=== PATIENT | female | born 1950 | race Two or more races ===

== ENCOUNTER 2018-10-14 11:30 | Emergency (ER) | payer MEDICARE, OTHER ==
[~2018-10-14] VITALS: Ht 154.9 cm; Wt 59.0 kg
--- NOTE | 2018-10-14 11:45 | NUR ---
PT BIBRA FROM HOME C/O BILAT/LOWER RIB AREA PAIN S/P FALL LAST SUNDAY. FACIAL BRUISIG NOTED. 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 STATES TOOK TYLENOL 1G AT AROUND 0900 TODAY. STABEL VITALS. WILL CONTINUE TO MONITOR.
--- NOTE | 2018-10-14 11:49 | NUR ---
DR BRIDGES AT BEDSIDE FOR EVAL.
--- NOTE | 2018-10-14 12:06 | NUR ---
RADIOLOGY AT BEDSIDE FOR CHEST XRAY.
--- NOTE | 2018-10-14 12:13 | NUR ---
PT TO RADIOLOGY FOR HEAD CT SCAN VIA [facility].
[2018-10-14 12:38] LABS: BASOPHILS % (AUTO) 0.4 % (0.0-2.0); EOSINOPHILS % (AUTO) 3.4 % (0.0-6.0); HEMATOCRIT 39 % (33-45); LYMPHOCYTES # (AUTO) 2.1 /CMM (0.8-4.8); LYMPHOCYTES % (AUTO) 23.8 % (20.0-44.0); MEAN CORPUSCULAR HGB CONC 33 g/dl (31.0-36.0); MEAN CORPUSCULAR VOLUME 92 fL (82-100); MONOCYTES # (AUTO) 0.9 /CMM (0.1-1.30); MONOCYTES % (AUTO) 9.5 % (2.0-12.0); NEUTROPHILS # (AUTO) 5.6 /CMM (1.8-8.9); NEUTROPHILS % (AUTO) 62.9 % (43.0-81.0); PLATELET COUNT (AUTO) 238 /CMM (150-450); RED BLOOD CELL COUNT(AUTO) 4.27 MIL/uL (4.0-5.2)
[2018-10-14 12:48] LABS: CALCIUM, SERUM 9.7 mg/dL (8.5-10.1); CARBON DIOXIDE 30 mmol/L (21-32); CHLORIDE 105 mmol/L (98-107); GLUCOSE 100 mg/dL (74-106); POTASSIUM 4.4 mmol/L (3.5-5.1); SODIUM SERUM 141 mmol/L (136-145); UREA NITROGEN, BLOOD 15 mg/dL (7-18)
[2018-10-14] MEDS ORDERED: IOHEXOL-300 100 ML VIAL IV ONE (13:55)
[2018-10-14] MEDS ORDERED: IV NS 0.9% 250 ML IV ONE (13:56)
[2018-10-14] MEDS ORDERED: CT SWABBABLE VALVE TRANS SET 1 EA INFUS.SET MC ONE (13:56)
--- NOTE | 2018-10-14 14:32 | NUR ---
PT OT RADIOLOGY FOR [facility].
--- NOTE | 2018-10-14 16:02 | NUR ---
CALLED [employer] TO REQUEST A WALKER. LEFT A VOICEMAIL
--- NOTE | 2018-10-14 16:21 | NUR ---
PT PROVIDED W/ A WALKER. FRIEND AT BEDSIDE TO TAKE PT HOME. IV removed. Catheter intact and site benign. Pressure and 4x4 applied to site. No bleeding noted.Patient discharged to home in stable condition. Written and verbal after care instructions given. Patient verbalizes understanding of instruction.
[2018-10-14 16:23] VITALS: BP 132/60
== END 2018-10-14 16:25 | disposition home or self-care (01) ==
LOC: ER 11:32
DX: S22.31XA Fracture of one rib, right side, initial encounter for closed fracture (principal); S00.83XA Contusion of other part of head, initial encounter; R55 Syncope and collapse; I10 Essential (primary) hypertension; W18.39XA Other fall on same level, initial encounter; Y93.01 Activity, walking, marching and hiking; Y92.89 Other specified places as the place of occurrence of the external cause; Y99.8 Other external cause status
CPT/HCPCS: 36415; 70450; 71045; 71260; 74177; 80048; 84484; 85025; 85730; 93005; 99284; J7050; Q9967

== ENCOUNTER 2018-12-16 11:48 | Emergency (ER) | payer MEDICARE, OTHER ==
[~2018-12-16] VITALS: Ht 157.5 cm; Wt 50.0 kg
[2018-12-16 11:56] VITALS: BP 147/78
[2018-12-16] MEDS ORDERED: ACETAMINOPHEN ES 500 MG TABLET PO ONE (12:30)
[2018-12-16] MEDS ORDERED: ACETAMINOPHEN ES 500 MG TABLET ONE (12:31)
== END 2018-12-16 12:40 | disposition home or self-care (01) ==
LOC: ER 11:50
DX: L03.114 Cellulitis of left upper limb (principal); I10 Essential (primary) hypertension; F32.9 Major depressive disorder, single episode, unspecified

== ENCOUNTER 2019-02-05 14:41 | Emergency (ER) | payer MEDICARE, OTHER ==
[~2019-02-05] VITALS: Ht 152.4 cm; Wt 50.8 kg
[2019-02-05] MEDS ORDERED: IV NS 0.9% 500 ML BAG IV ONE (15:00)
[2019-02-05] MEDS ORDERED: MORPHINE SULFATE INJ 2 MG/ML DISP.SYRIN IV ONE (15:00)
[2019-02-05] MEDS ORDERED: ONDANSETRON HCL/PF 4 MG/2 ML VIAL IVP ONE (15:00)
[2019-02-05] MEDS ORDERED: MORPHINE SULFATE INJ 4 MG/ML DISP.SYRIN ONE (15:01)
[2019-02-05] MEDS ORDERED: ONDANSETRON HCL/PF 4 MG/2 ML VIAL ONE (15:01)
[2019-02-05 15:13] LABS: BASOPHILS % (AUTO) 0.2 % (0.0-2.0); EOSINOPHILS % (AUTO) 0.2 % (0.0-6.0); HEMATOCRIT 41 % (33-45); HEMOGLOBIN 13.6 g/dL (11.5-14.8); LYMPHOCYTES # (AUTO) 1.1 /CMM (0.8-4.8); LYMPHOCYTES % (AUTO) 9.1 % (20.0-44.0); MEAN CORPUSCULAR HGB CONC 33 g/dl (31.0-36.0); MEAN CORPUSCULAR VOLUME 91 fL (82-100); MONOCYTES % (AUTO) 8.2 % (2.0-12.0); NEUTROPHILS # (AUTO) 9.9 /CMM (1.8-8.9); NEUTROPHILS % (AUTO) 82.3 % (43.0-81.0); PLATELET COUNT (AUTO) 229 /CMM (150-450); RED BLOOD CELL COUNT(AUTO) 4.51 MIL/uL (4.0-5.2)
--- NOTE | 2019-02-05 15:13 | NUR ---
CHRONIC BACK PAIN GOT WORSE X 3 DAYS. PT AAOX4, VSS. RR EVEN & UNLABORED. DENIES CP, SOB, DIZZINESS, N/V @ THIS TIME. SEEN & EVAL'D BY DR. MCKEON. MEDICATED ORDERED & WILL CONT TO MONITOR.
[2019-02-05 15:26] LABS: CARBON DIOXIDE 27 mmol/L (21-32); CHLORIDE 97 mmol/L (98-107); CREATININE 0.9 mg/dL (0.6-1.3); GLUCOSE 151 mg/dL (74-106); POTASSIUM 4.2 mmol/L (3.5-5.1); SODIUM SERUM 134 mmol/L (136-145); UREA NITROGEN, BLOOD 25 mg/dL (7-18)
--- NOTE | 2019-02-05 15:30 | NUR ---
ADDENDUM: Intravenous End Time Documentation: Normal saline 1 liter (IV-WO) : start time: 1530 pm; end time: 1630 pm : IV site: [facility] # 18 Port # 1
[2019-02-05 15:32] LABS: ALANINE AMINOTRANSFERASE 24 U/L (12-78); ALBUMIN 3.2 g/dL (3.4-5.0); ALKALINE PHOSPHATASE 61 U/L (46-116); ASPARTATE AMINOTRANSFERASE 12 U/L (15-37); BILIRUBIN,DIRECT 0.1 mg/dL (0.0-0.2); BILIRUBIN,TOTAL 0.6 mg/dL (0.2-1.0); LIPASE 75 U/L (73-393); TOTAL PROTEIN, SERUM 7.6 g/dL (6.4-8.2)
[2019-02-05] MEDS ORDERED: IOHEXOL-350 100 ML VIAL IV ONE (15:45)
[2019-02-05] MEDS ORDERED: CT SWABBABLE VALVE TRANS SET 1 EA INFUS.SET MC ONE (15:45)
[2019-02-05] MEDS ORDERED: IV NS 0.9% 250 ML IV ONE (15:45)
[2019-02-05] MEDS ORDERED: KETOROLAC TROMETHAMINE INJ 30 MG/ML VIAL ONE (16:39)
[2019-02-05] MEDS ORDERED: KETOROLAC TROMETHAMINE INJ 30 MG/ML VIAL IV ONE (17:00)
[2019-02-05 17:22] LABS: APPEARANCE,URINE Clear (CLEAR); BILIRUBIN,URINE Negative (NEGATIVE); BLOOD, URINE Small Ery/uL (NEGATIVE); COLOR,URINE Yellow (YELLOW); KETONES,URINE Negative (NEGATIVE); LEUKOCYTE ESTERASE ,URINE Negative (NEGATIVE); NITRITE, URINE Negative (NEGATIVE); PROTEIN,URINE Negative (NEGATIVE); UGLUCOSE Negative (NEGATIVE); UROBILINOGEN,URINE 0.2 EU/dL (0.2)
[2019-02-05] MEDS ORDERED: LIDOCAINE 5% (PATCH) 1 EA PATCH TP ONE (17:30)
[2019-02-05 17:37] LABS: BACTERIA,URINE Rare /HPF (None Seen); WBC,URINE 0-2 /HPF (0-3)
[2019-02-05 17:38] LABS: SQUAMOUS EPITHELIAL CELL,UR Few /HPF (None Seen); URINE AMORPHOUS URATE Few /HPF (None Seen)
[2019-02-05 17:40] VITALS: BP 155/77
--- NOTE | 2019-02-05 17:40 | NUR ---
IV removed. Catheter intact and site benign. Pressure and 4x4 applied to site. No bleeding noted. Patient discharged to home in stable condition. Written and verbal after care instructions given. Patient verbalizes understanding of instruction.
[2019-02-05] MEDS ORDERED: HYDROCODONE/APAP 5/325MG 1 EACH TABLET PO ONE (18:30)
== END 2019-02-05 17:40 | disposition home or self-care (01) ==
LOC: ER 14:44
DX: R10.84 Generalized abdominal pain (principal); R11.2 Nausea with vomiting, unspecified; M54.6 Pain in thoracic spine; I10 Essential (primary) hypertension; E78.5 Hyperlipidemia, unspecified; F32.9 Major depressive disorder, single episode, unspecified; Z60.2 Problems related to living alone
CPT/HCPCS: 36415; 71275; 74174; 80048; 80076; 81001; 83690; 84484; 85025; 85730; 93005; 96361; 96374; 96375; 99284; J1885; J2270; J2405; J7040; J7050; Q9967; 81000-TC

== ENCOUNTER 2023-03-12 09:31 | Inpatient (IN) | payer MEDICARE, OTHER ==
[~2023-03-12] VITALS: Ht 152.4 cm; Wt 53.5 kg
[2023-03-12] MEDS ORDERED: ONDANSETRON HCL/PF 4 MG/2 ML VIAL ONE (09:44)
[2023-03-12] MEDS ORDERED: MORPHINE SULFATE INJ 4 MG/ML DISP.SYRIN ONE ×2 (09:45→11:09)
[2023-03-12] MEDS ORDERED: ACET-2605 PO (10:00)
[2023-03-12] MEDS ORDERED: BUPR-319 PO (10:00)
[2023-03-12] MEDS ORDERED: SERT100T PO (10:00)
[2023-03-12] MEDS ORDERED: ONDANSETRON HCL/PF 4 MG/2 ML VIAL IVP ONE (10:00)
[2023-03-12] MEDS ORDERED: MORPHINE SULFATE INJ 2 MG/ML DISP.SYRIN IV ONE ×2 (10:00→11:30)
[2023-03-12] MEDS ORDERED: BUSP15TA3 PO (10:00)
[2023-03-12 10:46] LABS: CALCIUM, SERUM 9.5 mg/dL (8.5-10.1); CARBON DIOXIDE 26 mmol/L (21-32); CHLORIDE 105 mmol/L (98-107); CREATININE 0.9 mg/dL (0.6-1.3); GLUCOSE 131 mg/dL (74-106); POTASSIUM 3.6 mmol/L (3.5-5.1); SODIUM SERUM 140 mmol/L (136-145); UREA NITROGEN, BLOOD 22 mg/dL (7-18)
[2023-03-12 10:51] LABS: INR 1.03 (0.91-1.10); PARTIAL THROMBOPLASTIN TIME 26.1 SEC (24.3-34.3); PROTHROMBIN TIME 10.9 SECS (9.2-11.1)
[2023-03-12 10:53] LABS: ALANINE AMINOTRANSFERASE 25 U/L (12-78); ALBUMIN 3.5 g/dL (3.4-5.0); ALKALINE PHOSPHATASE 92 U/L (46-116); ASPARTATE AMINOTRANSFERASE 19 U/L (15-37); BILIRUBIN,DIRECT 0.1 mg/dL (0.0-0.2); BILIRUBIN,TOTAL 0.5 mg/dL (0.2-1.0); TOTAL PROTEIN, SERUM 7.5 g/dL (6.4-8.2)
[2023-03-12 10:56] LABS: BASOPHILS % (AUTO) 0.4 % (0.0-2.0); EOSINOPHILS # (AUTO) 0.2 K/uL (0.0-0.7); EOSINOPHILS % (AUTO) 1.8 % (0.0-6.0); HEMATOCRIT 42 % (33-45); HEMOGLOBIN 13.7 g/dL (11.5-14.8); MEAN CORPUSCULAR HEMOGLOBIN 29 PG (26.0-33.0); MEAN CORPUSCULAR HGB CONC 33 g/dl (31.0-36.0); MEAN CORPUSCULAR VOLUME 88 fL (82-100); MONOCYTES # (AUTO) 0.5 K/uL (0.1-1.30); MONOCYTES % (AUTO) 4.5 % (2.0-12.0); NEUTROPHILS # (AUTO) 8.6 K/uL (1.8-8.9); NEUTROPHILS % (AUTO) 83.3 % (43.0-81.0); PLATELET COUNT (AUTO) 203 K/uL (150-450); RED BLOOD CELL COUNT(AUTO) 4.77 MIL/uL (4.0-5.2); RED CELL DISTRIBUTION WIDTH 14.7 % (11.5-15.0); WHITE BLOOD COUNT (AUTO) 10.3 K/uL (4.3-11.0)
[2023-03-12] MEDS ORDERED: ONDANSETRON HCL/PF 4 MG/2 ML VIAL IVP PRN (12:00)
[2023-03-12] MEDS ORDERED: MAG HYDROX/AL HYDROX/SIMETH 30 ML UDC PO PRN (12:00)
[2023-03-12] MEDS ORDERED: Z GUARD REMEDY 4 OZ OINT TP PRN (12:00)
[2023-03-12] MEDS ORDERED: busPIRone 5 MG TABLET PO PRN (13:00)
[2023-03-12] MEDS: MORPHINE SULFATE INJ 2 MG/ML DISP.SYRIN IV PRN (14:01)
[2023-03-12] MEDS: IV NS 0.9% 1,000 ML IV PRN (15:02)
[2023-03-12 16:03] VITALS: BP 108/46; TEMP 98.8; O2SAT 95
[2023-03-12 20:00] VITALS: BP 138/66; TEMP 99; O2SAT 95
[2023-03-13] VITALS (7 sets, daily range): BP systolic 114–128; BP diastolic 46–60; TEMP 98–98.4; O2SAT 92–96
[2023-03-13] MEDS: MORPHINE SULFATE INJ 2 MG/ML DISP.SYRIN IV PRN ×3 (01:55→13:14)
[2023-03-13 07:07] LABS: BASOPHILS % (AUTO) 0.5 % (0.0-2.0); EOSINOPHILS # (AUTO) 0.3 K/uL (0.0-0.7); EOSINOPHILS % (AUTO) 2.8 % (0.0-6.0); HEMATOCRIT 41 % (33-45); HEMOGLOBIN 13.2 g/dL (11.5-14.8); LYMPHOCYTES # (AUTO) 1.6 K/uL (0.8-4.8); LYMPHOCYTES % (AUTO) 17.1 % (20.0-44.0); MEAN CORPUSCULAR HEMOGLOBIN 29 PG (26.0-33.0); MEAN CORPUSCULAR HGB CONC 32 g/dl (31.0-36.0); MEAN CORPUSCULAR VOLUME 90 fL (82-100); MONOCYTES # (AUTO) 0.8 K/uL (0.1-1.30); MONOCYTES % (AUTO) 8.3 % (2.0-12.0); NEUTROPHILS # (AUTO) 6.5 K/uL (1.8-8.9); NEUTROPHILS % (AUTO) 71.3 % (43.0-81.0); PLATELET COUNT (AUTO) 179 K/uL (150-450); RED BLOOD CELL COUNT(AUTO) 4.54 MIL/uL (4.0-5.2); RED CELL DISTRIBUTION WIDTH 14.9 % (11.5-15.0); WHITE BLOOD COUNT (AUTO) 9.1 K/uL (4.3-11.0)
[2023-03-13 07:21] LABS: CALCIUM, SERUM 8.8 mg/dL (8.5-10.1); CREATININE 0.8 mg/dL (0.6-1.3); MAGNESIUM 2.1 mg/dL (1.8-2.4); PHOSPHORUS 3.2 mg/dL (2.5-4.9); POTASSIUM 3.7 mmol/L (3.5-5.1)
[2023-03-13] MEDS: BUPROPION XL 150 MG TAB.ER.24 PO SCH (09:00)
[2023-03-13] MEDS: SERTRALINE HCL 50 MG TABLET PO SCH (09:00)
[2023-03-13] MEDS: IV NS 0.9% 1,000 ML IV PRN (13:12)
[2023-03-13] MEDS ORDERED: POLYMYXIN B SULFATE 500,000 UNITS ONE (14:35)
[2023-03-13] MEDS ORDERED: ANESTHESIA TRAY IN PYXIS 1 EA TRAY MC ONE ×2 (14:36→17:43)
[2023-03-13] MEDS ORDERED: BUPIVACAINE 0.5 % PF 150 MG/30 ML VIAL ONE (14:36)
[2023-03-13] MEDS ORDERED: TRANEXAMIC ACID 1,000 MG/10 ML VIAL ONE (14:36)
[2023-03-13] MEDS ORDERED: SEVOFLURANE 250 ML BOTTLE IH ONE (14:50)
[2023-03-13] MEDS ORDERED: HYDROMORPHONE INJ 2 MG/ML DISP.SYRIN ONE (14:51)
[2023-03-13] MEDS ORDERED: ROCURONIUM BROMIDE 50 MG/5 ML ONE (14:51)
[2023-03-13] MEDS ORDERED: FENTANYL PF 100MCG/2ML AMPUL ONE (14:51)
[2023-03-13] MEDS ORDERED: LABETALOL HCL IV 100MG VIAL ONE (15:51)
[2023-03-13] MEDS ORDERED: BUPIVACAINE 0.25% 75 MG/30 ML VIAL ONE (16:24)
[2023-03-13 17:40] LABS: HEMOGLOBIN 12.7 g/dL (11.5-14.8)
[2023-03-13] MEDS ORDERED: DOCUSATE SODIUM 250 MG CAPSULE PO PRN (18:00)
[2023-03-13] MEDS ORDERED: DOCUSATE SODIUM 100 MG CAPSULE PO PRN (18:00)
[2023-03-13] MEDS ORDERED: ONDANSETRON HCL/PF 4 MG/2 ML VIAL IV PRN (18:00)
[2023-03-13] MEDS ORDERED: BISACODYL SUPP (10 MG) 10 MG/SUPP.RECT SUPP.RECT RC PRN (18:00)
[2023-03-13] MEDS ORDERED: SENNOSIDES 8.6 MG TABLET PO PRN ×2 (18:00)
[2023-03-13] MEDS ORDERED: HYDROCODONE/APAP 5/325MG TABLET PO PRN (18:00)
[2023-03-13] MEDS ORDERED: ACETAMINOPHEN 325 MG TABLET PO PRN (18:00)
[2023-03-13] MEDS: MORPHINE SULFATE INJ 4 MG/ML DISP.SYRIN IV PRN (22:37)
[2023-03-13] MEDS: ANCEF 1 GM/50 ML D5W IV SCH ×2 (23:56)
[2023-03-14] MEDS: MORPHINE SULFATE INJ 4 MG/ML DISP.SYRIN IV PRN ×3 (06:23→16:07)
[2023-03-14 07:11] LABS: CALCIUM, SERUM 8.3 mg/dL (8.5-10.1); CARBON DIOXIDE 24 mmol/L (21-32); CHLORIDE 100 mmol/L (98-107); CREATININE 0.8 mg/dL (0.6-1.3); GLUCOSE 104 mg/dL (74-106); MAGNESIUM 1.7 mg/dL (1.8-2.4); POTASSIUM 4.2 mmol/L (3.5-5.1); SODIUM SERUM 136 mmol/L (136-145); UREA NITROGEN, BLOOD 15 mg/dL (7-18)
[2023-03-14] MEDS: IV NS 0.9% 1,000 ML IV PRN (07:12)
[2023-03-14] MEDS: ANCEF 1 GM/50 ML D5W IV SCH ×2 (07:12)
[2023-03-14 07:33] LABS: BASOPHILS % (AUTO) 0.3 % (0.0-2.0); EOSINOPHILS # (AUTO) 0.1 K/uL (0.0-0.7); EOSINOPHILS % (AUTO) 1.2 % (0.0-6.0); HEMATOCRIT 38 % (33-45); HEMOGLOBIN 12.5 g/dL (11.5-14.8); LYMPHOCYTES # (AUTO) 1.6 K/uL (0.8-4.8); LYMPHOCYTES % (AUTO) 13.1 % (20.0-44.0); MEAN CORPUSCULAR HEMOGLOBIN 30 PG (26.0-33.0); MEAN CORPUSCULAR HGB CONC 33 g/dl (31.0-36.0); MEAN CORPUSCULAR VOLUME 90 fL (82-100); MONOCYTES # (AUTO) 1.3 K/uL (0.1-1.30); MONOCYTES % (AUTO) 10.4 % (2.0-12.0); NEUTROPHILS # (AUTO) 9.1 K/uL (1.8-8.9); PLATELET COUNT (AUTO) 188 K/uL (150-450); RED BLOOD CELL COUNT(AUTO) 4.23 MIL/uL (4.0-5.2); RED CELL DISTRIBUTION WIDTH 14.6 % (11.5-15.0); WHITE BLOOD COUNT (AUTO) 12.1 K/uL (4.3-11.0)
[2023-03-14 08:00] VITALS: BP 148/57; TEMP 97.3; O2SAT 93
[2023-03-14] MEDS: BUPROPION XL 150 MG TAB.ER.24 PO SCH (09:42)
[2023-03-14] MEDS: SERTRALINE HCL 50 MG TABLET PO SCH (09:42)
[2023-03-14] MEDS: Magnesium 1GM/D5W 100ML PREMIX 100 ML IV SCH ×2 (09:42→10:47)
[2023-03-14] MEDS: ENOXAPARIN SODIUM 40 MG/0.4 ML DISP.SYRIN SQ SCH (09:55)
[2023-03-14 16:00] VITALS: BP 147/61; TEMP 98.2; O2SAT 98
[2023-03-14 19:27] LABS: APPEARANCE,URINE CLEAR (CLEAR); BILIRUBIN,URINE NEGATIVE (NEGATIVE); BLOOD, URINE 1+ Ery/uL (NEGATIVE); COLOR,URINE YELLOW (YELLOW); KETONES,URINE NEGATIVE (NEGATIVE); LEUKOCYTE ESTERASE ,URINE NEGATIVE (NEGATIVE); NITRITE, URINE NEGATIVE (NEGATIVE); PH,URINE 5.5 (5.0-8.0); PROTEIN,URINE NEGATIVE (NEGATIVE); UGLUCOSE NEGATIVE (NEGATIVE); UROBILINOGEN,URINE 0.2 EU/dL (0.2)
[2023-03-14 19:45] LABS: ADD URINE CULTURE NO; BACTERIA,URINE Few /HPF (None Seen); WBC,URINE NONE SEEN /HPF (0-3)
[2023-03-14 20:00] VITALS: BP 134/58; TEMP 98.8; O2SAT 97
[2023-03-15] MEDS: HYDROCODONE/APAP 5/325MG TABLET PO PRN ×2 (02:06→09:07)
[2023-03-15 06:04] LABS: BASOPHILS # (AUTO) 0.1 K/uL (0.0-0.2); BASOPHILS % (AUTO) 0.4 % (0.0-2.0); EOSINOPHILS # (AUTO) 0.1 K/uL (0.0-0.7); EOSINOPHILS % (AUTO) 0.9 % (0.0-6.0); HEMATOCRIT 37 % (33-45); LYMPHOCYTES # (AUTO) 1.3 K/uL (0.8-4.8); LYMPHOCYTES % (AUTO) 11.1 % (20.0-44.0); MEAN CORPUSCULAR HEMOGLOBIN 29 PG (26.0-33.0); MEAN CORPUSCULAR HGB CONC 33 g/dl (31.0-36.0); MEAN CORPUSCULAR VOLUME 89 fL (82-100); MONOCYTES # (AUTO) 1.3 K/uL (0.1-1.30); MONOCYTES % (AUTO) 11.2 % (2.0-12.0); NEUTROPHILS # (AUTO) 8.9 K/uL (1.8-8.9); NEUTROPHILS % (AUTO) 76.4 % (43.0-81.0); PLATELET COUNT (AUTO) 183 K/uL (150-450); RED BLOOD CELL COUNT(AUTO) 4.13 MIL/uL (4.0-5.2); RED CELL DISTRIBUTION WIDTH 14.4 % (11.5-15.0); WHITE BLOOD COUNT (AUTO) 11.6 K/uL (4.3-11.0)
[2023-03-15 06:41] LABS: CALCIUM, SERUM 9.2 mg/dL (8.5-10.1); CREATININE 0.9 mg/dL (0.6-1.3); MAGNESIUM 2.4 mg/dL (1.8-2.4); PHOSPHORUS 2.7 mg/dL (2.5-4.9); POTASSIUM 3.9 mmol/L (3.5-5.1)
[2023-03-15 08:00] VITALS: BP 98/44; TEMP 100; O2SAT 94
[2023-03-15] MEDS: ENOXAPARIN SODIUM 40 MG/0.4 ML DISP.SYRIN SQ SCH (09:03)
[2023-03-15] MEDS: BUPROPION XL 150 MG TAB.ER.24 PO SCH (09:06)
[2023-03-15] MEDS: SERTRALINE HCL 50 MG TABLET PO SCH (09:06)
[2023-03-15 16:00] VITALS: BP 101/62; TEMP 97.4; O2SAT 98
[2023-03-15 20:00] VITALS: BP 128/62; TEMP 98.2; O2SAT 98
[2023-03-15 20:05] VITALS: BP 128/62; TEMP 98.2; O2SAT 93
[2023-03-15] MEDS: MORPHINE SULFATE INJ 4 MG/ML DISP.SYRIN IV PRN (20:11)
[2023-03-16] MEDS: MORPHINE SULFATE INJ 4 MG/ML DISP.SYRIN IV PRN ×2 (06:02→10:22)
[2023-03-16 08:30] VITALS: BP 142/60; TEMP 97; O2SAT 95
[2023-03-16] MEDS: SERTRALINE HCL 50 MG TABLET PO SCH (09:37)
[2023-03-16] MEDS: BUPROPION XL 150 MG TAB.ER.24 PO SCH (09:37)
[2023-03-16] MEDS ORDERED: ENOX40DI SQ (09:56)
[2023-03-16] MEDS: ENOXAPARIN SODIUM 40 MG/0.4 ML DISP.SYRIN SQ SCH (09:57)
[2023-03-16] MEDS ORDERED: SORBITOL SOLUTION 70% 30 ML SOLUTION PO ONE (10:00)
[2023-03-16] MEDS ORDERED: LACTULOSE 10 G/15 ML UDC (PYXIS) PO PRN (10:00)
[2023-03-16 12:36] LABS: BASOPHILS % (AUTO) 0.4 % (0.0-2.0); EOSINOPHILS # (AUTO) 0.1 K/uL (0.0-0.7); EOSINOPHILS % (AUTO) 1.3 % (0.0-6.0); HEMATOCRIT 35 % (33-45); HEMOGLOBIN 11.5 g/dL (11.5-14.8); LYMPHOCYTES # (AUTO) 1.3 K/uL (0.8-4.8); MEAN CORPUSCULAR HEMOGLOBIN 29 PG (26.0-33.0); MEAN CORPUSCULAR HGB CONC 33 g/dl (31.0-36.0); MEAN CORPUSCULAR VOLUME 90 fL (82-100); MONOCYTES # (AUTO) 1.3 K/uL (0.1-1.30); NEUTROPHILS # (AUTO) 8.1 K/uL (1.8-8.9); NEUTROPHILS % (AUTO) 74.3 % (43.0-81.0); PLATELET COUNT (AUTO) 203 K/uL (150-450); RED BLOOD CELL COUNT(AUTO) 3.91 MIL/uL (4.0-5.2); RED CELL DISTRIBUTION WIDTH 14.5 % (11.5-15.0)
[2023-03-16 12:37] LABS: CALCIUM, SERUM 8.4 mg/dL (8.5-10.1); CARBON DIOXIDE 26 mmol/L (21-32); CHLORIDE 101 mmol/L (98-107); CREATININE 0.7 mg/dL (0.6-1.3); GLUCOSE 137 mg/dL (74-106); MAGNESIUM 2.2 mg/dL (1.8-2.4); PHOSPHORUS 2.4 mg/dL (2.5-4.9); POTASSIUM 3.6 mmol/L (3.5-5.1); SODIUM SERUM 136 mmol/L (136-145); UREA NITROGEN, BLOOD 18 mg/dL (7-18)
[2023-03-16] MEDS ORDERED: K PHOS NEUTRAL 250 MG TABLET PO ONE (16:00)
== END 2023-03-16 16:37 | DRG 521 ==
LOC: ER 09:31 → MED 13:02
PROVIDERS: ADMIT Nurse Practitioner Acute Care; ATTEND Nurse Practitioner Acute Care
PROC: 0SRR0JZ Replacement of Right Hip Joint, Femoral Surface with Synthetic Substitute, Open Approach (ICD-10-PCS; principal; 2023-03-13)
DX: S72.011A Unspecified intracapsular fracture of right femur, initial encounter for closed fracture (principal); N17.0 Acute kidney failure with tubular necrosis; S22.31XA Fracture of one rib, right side, initial encounter for closed fracture; W01.0XXA Fall on same level from slipping, tripping and stumbling without subsequent striking against object, initial encounter; E86.0 Dehydration; I10 Essential (primary) hypertension; E78.5 Hyperlipidemia, unspecified; Y93.9 Activity, unspecified; Y92.009 Unspecified place in unspecified non-institutional (private) residence as the place of occurrence of the external cause; F32.A Depression, unspecified; E83.42 Hypomagnesemia
CPT/HCPCS: 36415; 71045-TC; 73501; 80048-TC; 80076-TC; 81001; 83735-TC; 84100-TC; 85025-TC; 85027-TC; 85730-TC; 86850-TC; 87086-TC; 88305-TC; 88311-TC; 93307-TC; 97110-TC; 97112-TC; 97530-TC; A4217; A4223; A6209; A6253; C1776; G0378; J0330; J0690; J1100; J1170; J1650; J2270; J2405; J2704; J3010; J3475; J3490; J7030; J7060

== ENCOUNTER 2023-03-23 17:34 | Emergency (ER) | payer MEDICARE, MEDICAID ==
[~2023-03-23] VITALS: Ht 152.4 cm; Wt 54.4 kg
[~2023-03-23 17:34] MED LIST: ACET-2605 PO; BUPR-319 PO; BUSP15TA3 PO; ENOX40DI SQ; SERT100T PO
[2023-03-23] MEDS ORDERED: TDAP [DIPH/PERTUSSIS/TET] 0.5 ML VIAL IM ONE ×2 (18:47→19:00)
[2023-03-23] MEDS ORDERED: ACETAMINOPHEN 325 MG TABLET PO ONE (22:00)
[2023-03-23] MEDS ORDERED: ACETAMINOPHEN ES 500 MG TABLET ONE (22:01)
[2023-03-23 22:12] VITALS: BP 141/75; TEMP 97.8; O2SAT 98
== END 2023-03-23 22:12 ==
LOC: ER 17:34
DX: S01.81XA Laceration without foreign body of other part of head, initial encounter (principal); M54.50 Low back pain, unspecified; I10 Essential (primary) hypertension; E78.5 Hyperlipidemia, unspecified; F32.A Depression, unspecified; Z60.2 Problems related to living alone; W07.XXXA Fall from chair, initial encounter; Y93.89 Activity, other specified; Y92.89 Other specified places as the place of occurrence of the external cause; Y99.8 Other external cause status
CPT/HCPCS: 70450-TC; 72125-TC; 72131-TC; 72170-TC; 73130-TC; 73564-TC; 90715

== ENCOUNTER 2023-09-21 17:33 | Inpatient (IN) | payer MEDICAID, MEDICARE ==
[~2023-09-21] VITALS: Ht 154.9 cm; Wt 55.8 kg
[2023-09-21 19:12] LABS: BASOPHILS # (AUTO) 0.1 K/uL (0.0-0.2); BASOPHILS % (AUTO) 0.7 % (0.0-2.0); EOSINOPHILS # (AUTO) 0.4 K/uL (0.0-0.7); EOSINOPHILS % (AUTO) 3.8 % (0.0-6.0); HEMATOCRIT 42 % (33-45); HEMOGLOBIN 13.9 g/dL (11.5-14.8); LYMPHOCYTES # (AUTO) 1.5 K/uL (0.8-4.8); MEAN CORPUSCULAR HEMOGLOBIN 29 PG (26.0-33.0); MEAN CORPUSCULAR HGB CONC 33 g/dl (31.0-36.0); MEAN CORPUSCULAR VOLUME 88 fL (82-100); MONOCYTES # (AUTO) 0.6 K/uL (0.1-1.30); MONOCYTES % (AUTO) 5.8 % (2.0-12.0); NEUTROPHILS # (AUTO) 7.7 K/uL (1.8-8.9); NEUTROPHILS % (AUTO) 74.7 % (43.0-81.0); PLATELET COUNT (AUTO) 190 K/uL (150-450); RED BLOOD CELL COUNT(AUTO) 4.81 MIL/uL (4.0-5.2); RED CELL DISTRIBUTION WIDTH 15.7 % (11.5-15.0); WHITE BLOOD COUNT (AUTO) 10.3 K/uL (4.3-11.0)
[2023-09-21 19:15] LABS: CALCIUM, SERUM 9.1 mg/dL (8.5-10.1); CARBON DIOXIDE 29 mmol/L (21-32); CHLORIDE 104 mmol/L (98-107); CREATININE 0.8 mg/dL (0.6-1.3); GLUCOSE 114 mg/dL (74-106); POTASSIUM 3.9 mmol/L (3.5-5.1); SODIUM SERUM 138 mmol/L (136-145); UREA NITROGEN, BLOOD 29 mg/dL (7-18)
[2023-09-21 19:17] LABS: INR 0.97 (0.91-1.10)
[2023-09-21] MEDS ORDERED: MORPHINE SULFATE INJ 4 MG/ML DISP.SYRIN ONE (19:22)
[2023-09-21] MEDS: MORPHINE SULFATE INJ 2 MG/ML DISP.SYRIN IV ONE (19:45)
[2023-09-21] MEDS: ACETAMINOPHEN ES 500 MG TABLET PO ONE (20:35)
[2023-09-21] MEDS ORDERED: ACETAMINOPHEN ES 500 MG TABLET ONE (20:35)
[2023-09-21] MEDS ORDERED: Z GUARD REMEDY 4 OZ OINT TP PRN (23:30)
[2023-09-21] MEDS ORDERED: ONDANSETRON HCL/PF 4 MG/2 ML VIAL IVP PRN (23:30)
[2023-09-22 01:00] VITALS: BP 136/64; TEMP 98.4; O2SAT 95
[2023-09-22] MEDS: PREGABALIN 25 MG CAPSULE PO SCH (01:14)
[2023-09-22] MEDS: IV NS 0.9% 1,000 ML IV PRN (02:16)
[2023-09-22 06:45] LABS: BASOPHILS # (AUTO) 0.1 K/uL (0.0-0.2); BASOPHILS % (AUTO) 0.7 % (0.0-2.0); EOSINOPHILS # (AUTO) 0.4 K/uL (0.0-0.7); EOSINOPHILS % (AUTO) 4.7 % (0.0-6.0); HEMATOCRIT 41 % (33-45); HEMOGLOBIN 13.2 g/dL (11.5-14.8); LYMPHOCYTES # (AUTO) 1.8 K/uL (0.8-4.8); LYMPHOCYTES % (AUTO) 23.3 % (20.0-44.0); MEAN CORPUSCULAR HEMOGLOBIN 29 PG (26.0-33.0); MEAN CORPUSCULAR HGB CONC 32 g/dl (31.0-36.0); MEAN CORPUSCULAR VOLUME 89 fL (82-100); MONOCYTES # (AUTO) 0.8 K/uL (0.1-1.30); MONOCYTES % (AUTO) 11.2 % (2.0-12.0); NEUTROPHILS # (AUTO) 4.6 K/uL (1.8-8.9); NEUTROPHILS % (AUTO) 60.1 % (43.0-81.0); PLATELET COUNT (AUTO) 172 K/uL (150-450); RED BLOOD CELL COUNT(AUTO) 4.61 MIL/uL (4.0-5.2); RED CELL DISTRIBUTION WIDTH 15.8 % (11.5-15.0); WHITE BLOOD COUNT (AUTO) 7.6 K/uL (4.3-11.0)
[2023-09-22 06:47] LABS: ALBUMIN 3.2 g/dL (3.4-5.0); BILIRUBIN,TOTAL 0.4 mg/dL (0.2-1.0); CALCIUM, SERUM 8.9 mg/dL (8.5-10.1); CREATININE 0.8 mg/dL (0.6-1.3); PHOSPHORUS 3.7 mg/dL (2.5-4.9); POTASSIUM 4.7 mmol/L (3.5-5.1); TOTAL PROTEIN, SERUM 6.7 g/dL (6.4-8.2)
[2023-09-22 07:00] VITALS: BP 122/96; TEMP 97.9; O2SAT 97
[2023-09-22] MEDS ORDERED: LAMO25TA5 PO (08:15)
[2023-09-22] MEDS: PANTOPRAZOLE 40 MG TABLET.DR PO SCH (08:47)
[2023-09-22] MEDS: ENOXAPARIN SODIUM 40 MG/0.4 ML DISP.SYRIN SQ SCH (09:12)
[2023-09-22 10:00] VITALS: BP 161/119; TEMP 97.7; O2SAT 92
[2023-09-22] MEDS: HYDROCODONE/APAP 10/325MG TABLET PO PRN (10:06)
[2023-09-22 16:00] VITALS: BP 133/61; TEMP 98.1; O2SAT 98
[2023-09-22 17:28] LABS: THYROID STIMULATING HORMONE 3.276 uIU/mL (0.358-3.74)
[2023-09-22 20:00] VITALS: BP 158/61; TEMP 98.4; O2SAT 97
[2023-09-22] MEDS: MAGNESIUM HYDROXIDE 30 ML UDC PO PRN (20:54)
[2023-09-23 08:00] VITALS: BP 140/80; TEMP 98.8; O2SAT 94
[2023-09-23] MEDS: LamoTRIgine 25 MG TABLET PO SCH (12:10)
[2023-09-23] MEDS: SERTRALINE HCL 50 MG TABLET PO SCH (12:11)
[2023-09-23] MEDS: ACETAMINOPHEN 325 MG TABLET PO PRN (13:24)
[2023-09-23 16:00] VITALS: BP 111/91; TEMP 99; O2SAT 96
[2023-09-23 20:00] VITALS: BP 191/83; TEMP 98.8; O2SAT 95
[2023-09-23 20:37] VITALS: BP 191/83; TEMP 98.8; O2SAT 95
[2023-09-23 21:35] VITALS: BP 147/70
[2023-09-24 08:00] VITALS: BP 150/66; TEMP 98; O2SAT 97
[2023-09-24] MEDS: ENSURE ENLIVE 237 ML LIQUID (VANILLA) PO SCH (10:15)
[2023-09-24] MEDS: BUPROPION XL 150 MG TAB.ER.24 PO SCH (10:16)
[2023-09-24] MEDS: SENNOSIDES 8.6 MG TABLET PO SCH (14:42)
[2023-09-24] MEDS: DOCUSATE SODIUM 100 MG CAPSULE PO SCH (14:42)
[2023-09-24 16:00] VITALS: BP 156/70; TEMP 98.6; O2SAT 96
[2023-09-25 08:00] VITALS: BP 167/68; TEMP 99.5; O2SAT 96
[2023-09-25 08:15] VITALS: BP 155/65
[2023-09-25 16:00] VITALS: BP 144/62; TEMP 98.7; O2SAT 96
[2023-09-25 20:00] VITALS: BP 133/67; TEMP 98.6; O2SAT 94
[2023-09-26 08:00] VITALS: BP 139/62; TEMP 97.6; O2SAT 97
[2023-09-26] MEDS ORDERED: DOCU100C36 PO (09:39)
[2023-09-26] MEDS ORDERED: PREG25CA PO (09:39)
[2023-09-26] MEDS ORDERED: MAGN400O6 PO (09:39)
[2023-09-26 14:00] VITALS: BP 150/68; TEMP 97.5; O2SAT 95
== END 2023-09-26 13:40 | DRG 563 ==
LOC: ER 17:38 → MED 22:26
PROVIDERS: ADMIT Nurse Practitioner Family; ATTEND Nurse Practitioner Acute Care
DX: S52.122A Displaced fracture of head of left radius, initial encounter for closed fracture (principal); E44.0 Moderate protein-calorie malnutrition; D68.69 Other thrombophilia; R62.7 Adult failure to thrive; S76.392A Other specified injury of muscle, fascia and tendon of the posterior muscle group at thigh level, left thigh, initial encounter; W01.0XXA Fall on same level from slipping, tripping and stumbling without subsequent striking against object, initial encounter; Y92.009 Unspecified place in unspecified non-institutional (private) residence as the place of occurrence of the external cause; E86.0 Dehydration; E88.09 Other disorders of plasma-protein metabolism, not elsewhere classified; F32.A Depression, unspecified; F41.9 Anxiety disorder, unspecified; G89.29 Other chronic pain; Z96.641 Presence of right artificial hip joint; Z74.09 Other reduced mobility; S00.83XA Contusion of other part of head, initial encounter; R29.6 Repeated falls; Z68.23 Body mass index [BMI] 23.0-23.9, adult; S50.312A Abrasion of left elbow, initial encounter
CPT/HCPCS: 36415; 70450-TC; 71045-TC; 72125-TC; 73080-TC; 73110; 73130-TC; 73502; 73610-TC; 73630-TC; 73700-TC; 80048-TC; 80053-TC; 80061-TC; 83735-TC; 84100-TC; 84443-TC; 84484-TC; 85025-TC; 85730-TC; 97110-TC; 97116-TC; 97530-TC; 97535-TC; A4223; A6253; G0378; J1650; J2270; J3490; J7030

== ENCOUNTER 2024-02-21 17:25 | Emergency (ER) | payer MEDICARE ==
[~2024-02-21] VITALS: Ht 154.9 cm; Wt 49.9 kg
[~2024-02-21 17:25] MED LIST changes: -ACET-2605 PO; +DOCU100C36 PO; -ENOX40DI SQ; +LAMO25TA5 PO; +MAGN400O6 PO; +PREG25CA PO
[2024-02-21] MEDS ORDERED: ACETAMINOPHEN ES 500 MG TABLET ONE (19:30)
[2024-02-21] MEDS: ACETAMINOPHEN ES 500 MG TABLET PO ONE (19:37)
[2024-02-21 19:42] VITALS: BP 131/71; TEMP 98; O2SAT 98
== END 2024-02-21 21:05 | disposition home or self-care (01) ==
LOC: ER 17:31
DX: S52.591A Other fractures of lower end of right radius, initial encounter for closed fracture (principal); Z86.59 Personal history of other mental and behavioral disorders; Z60.2 Problems related to living alone; W18.39XA Other fall on same level, initial encounter; Y93.89 Activity, other specified; Y92.89 Other specified places as the place of occurrence of the external cause; Y99.8 Other external cause status
CPT/HCPCS: 73110; 73130-TC